=== PATIENT | male | born 1940 | race Two or more races ===

== ENCOUNTER 2016-08-11 16:46 | Emergency (ER) | payer MEDICARE ==
[~2016-08-11] VITALS: Ht 160 cm; Wt 79.4 kg
[~2016-08-11 16:46] MED LIST: AMIODARONE PO; CARB200T3 PO; FURO40TA4 PO; GABA300C8 PO; METO2.5T11 PO; POTA10SO11; PRAV20TA3 PO; WARF3TAB22 PO
[2016-08-11 16:50] VITALS: BP 0/0
[2016-08-11] MEDS ORDERED: SODIUM BICARBONATE 8.4% INJ 50ML SYRINGE ONE (16:53)
[2016-08-11] MEDS ORDERED: EPINEPHrine HCL 1 MG/10 ML SYRG IV ONE (17:34)
[2016-08-11] MEDS ORDERED: CALCIUM CHLOR(10%) 100MG/ML 10ML SYRINGE IV ONE (17:46)
== END 2016-08-11 17:00 | disposition expired ==
LOC: ER 16:46 → EDBD 16:46 → ER 17:00
DX: I46.9 Cardiac arrest, cause unspecified (principal); I10 Essential (primary) hypertension; I48.91 Unspecified atrial fibrillation; Z79.01 Long term (current) use of anticoagulants; Z85.46 Personal history of malignant neoplasm of prostate
CPT/HCPCS: 31500; 92950; 99285; J0171